=== PATIENT | male | born 1960 | race Caucasian/White ===

== ENCOUNTER 2016-10-29 15:46 | Emergency (ER) | payer MEDICARE ==
--- NOTE | 2016-10-29 16:36 | ER Document Report ---
ED Medical Screen (RME) - General Chief Complaint: Leg Pain Stated Complaint: RIGHT LEG PAIN Time Seen by Provider: 10/29/16 16:28 Mode of Arrival: Wheelchair Information source: Patient TRAVEL OUTSIDE OF THE [place] IN LAST 30 DAYS: No - HPI Patient complains to provider of: R leg pain Onset: Other - Pt with 2-3 day h/o R upper leg pain with no h/o trauma. Now feels like pain is migrating distally - Related Data Allergies/Adverse Reactions: acetaminophen [From Tylenol] Allergy (Verified 10/29/16 16:10) Past Medical History - Social History Chew tobacco use (# tins/day): Yes Frequency of alcohol use: None Drug Abuse: None - Past Medical History Cardiac Medical History: Reports: Hx Hypercholesterolemia, Hx Hypertension Endocrine Medical History: Reports: Hx Diabetes Mellitus Type 2 Renal/ Medical History: Denies: Hx Peritoneal Dialysis Past Surgical History: Reports: Hx Cardiac Catheterization Physical Exam - Vital signs Vitals: Temp Pulse Resp BP Pulse Ox 98.7 F 74 16 100/63 92 10/29/16 16:14 10/29/16 16:14 10/29/16 16:14 10/29/16 16:14 10/29/16 16:14 Course - Vital Signs Vital signs: Temp Pulse Resp BP Pulse Ox 98.7 F 74 16 100/63 92 10/29/16 16:14 10/29/16 16:14 10/29/16 16:14 10/29/16 16:14 10/29/16 16:14
[2016-10-29 17:18] LABS: ABSOLUTE BASOPHILS # (AUTO) 0.1 10^3/uL (0.0-0.2); ABSOLUTE EOSINOPHILS # (AUTO) 0.2 10^3/uL (0.0-0.6); ABSOLUTE LYMPHOCYTES (AUTO) 3.6 10^3/uL (0.5-4.7); ABSOLUTE NEUT (AUTO) 9.7 10^3/uL (1.7-8.2); BASOPHILS % (AUTO) 0.9 % (0-2); EOSINOPHILS % (AUTO) 1.6 % (0-6); HEMATOCRIT 42.6 % (37.9-51.0); HEMOGLOBIN 14.1 g/dL (13.5-17.0); HGB HCT DIFFERENCE -0.3; LYMPHOCYTES % (AUTO) 24.5 % (13-45); MEAN CORPUSCULAR HEMOGLOBIN 28.8 pg (27.0-33.4); MEAN CORPUSCULAR VOLUME 87 fl (80-97); MONOCYTES % (AUTO) 6.7 % (3-13); RED BLOOD COUNT 4.88 10^6/uL (4.35-5.55); RED CELL DISTRIBUTION WIDTH 13.2 % (11.5-14.0); SEGMENTED NEUTROPHILS % (AUTO) 66.3 % (42-78); WHITE BLOOD COUNT 14.7 10^3/uL (4.0-10.5)
[2016-10-29 17:39] LABS: ALANINE AMINOTRANSFERASE 30 U/L (21-72); ALBUMIN 3.9 g/dL (3.5-5.0); ALKALINE PHOSPHATASE 90 U/L (38-126); ANION GAP 12 (5-19); ASPARTATE AMINO TRANSFERASE 21 U/L (17-59); BILIRUBIN,DIRECT 0.3 mg/dL (0.0-0.4); BILIRUBIN,TOTAL 0.6 mg/dL (0.2-1.3); BLOOD UREA NITROGEN 14 mg/dL (7-20); CALCIUM 9.3 mg/dL (8.4-10.2); CARBON DIOXIDE 32 mmol/L (22-30); CHLORIDE 95 mmol/L (98-107); CREATININE RESULT 1.58 mg/dL (0.52-1.25); GLUCOSE 74 mg/dL (75-110); POTASSIUM 4.2 mmol/L (3.6-5.0); SODIUM 138.7 mmol/L (137-145); TOTAL PROTEIN 7.4 g/dL (6.3-8.2)
--- NOTE | 2016-10-29 19:23 | ER Document Report ---
ED General - General Chief Complaint: Leg Pain Stated Complaint: RIGHT LEG PAIN Time Seen by Provider: 10/29/16 16:28 Mode of Arrival: Wheelchair Information source: Patient Notes: 6-year-old male presents with complaints of right thigh pain on the lateral anterior aspect of a few day duration. Patient denies any fevers or chills nausea vomiting or diarrhea. Patient denies any chest pain shortness of breath TRAVEL OUTSIDE OF THE [place] IN LAST 30 DAYS: No - HPI Onset: Other Onset/Duration: Waxing and waning Quality of pain: Sharp Severity: Mild Pain Level: 2 Associated symptoms: Body/muscle aches, Other Exacerbated by: Movement Relieved by: Remaining still Similar symptoms previously: No Recently seen / treated by doctor: No - Related Data Allergies/Adverse Reactions: acetaminophen [From Tylenol] Allergy (Verified 10/29/16 16:10) Past Medical History - General Information source: Patient - Social History Smoking Status: Current Every Day Smoker Cigarette use (# per day): Yes Chew tobacco use (# tins/day): Yes Smoking Education Provided: No Frequency of alcohol use: None Drug Abuse: None Family History: Reviewed & Not Pertinent Patient has suicidal ideation: No Patient has homicidal ideation: No - Past Medical History Cardiac Medical History: Reports: Hx Hypercholesterolemia, Hx Hypertension Endocrine Medical History: Reports: Hx Diabetes Mellitus Type 2 Renal/ Medical History: Denies: Hx Peritoneal Dialysis Past Surgical History: Reports: Hx Cardiac Catheterization Review of Systems - Review of Systems Notes: REVIEW OF SYSTEMS: CONSTITUTIONAL : Denies fever, chills, or sweats. Denies recent illness. EENT: Denies eye, ear, throat, or mouth pain or symptoms. Denies nasal or sinus congestion or discharge. Denies throat, tongue, or mouth swelling or difficulty swallowing. CARDIOVASCULAR: Denies chest pain. Denies palpitations or racing or irregular heart beat. Denies ankle edema. RESPIRATORY: Denies cough, cold, or chest congestion. Denies shortness of breath, difficulty breathing, or wheezing. GASTROINTESTINAL: Denies abdominal pain or distention. Denies nausea, vomiting , or diarrhea. Denies blood in vomitus, stools, or per rectum. Denies black, tarry stools. Denies constipation. GENITOURINARY: Denies difficulty urinating, painful urination, burning, frequency, blood in urine, or discharge. MUSCULOSKELETAL: Right thigh pain SKIN: Denies rash, lesions or sores. HEMATOLOGIC : Denies easy bruising or bleeding. LYMPHATIC: Denies swollen, enlarged glands. NEUROLOGICAL: Denies confusion or altered mental status. Denies passing out or loss of consciousness. Denies dizziness or lightheadedness. Denies headache. Denies weakness or paralysis or loss of use of either side. Denies problems with gait or speech. Denies sensory loss, numbness, or tingling. Denies seizures. PSYCHIATRIC: Denies anxiety or stress. Denies depression, suicidal ideation, or homicidal ideation. ALL OTHER SYSTEMS REVIEWED AND NEGATIVE. Dictation was performed using [employer] voice recognition software PHYSICAL EXAMINATION: GENERAL: Well-appearing, well-nourished and in no acute distress. HEAD: Atraumatic, normocephalic. EYES: Pupils equal round and reactive to light, extraocular movements intact, sclera anicteric, conjunctiva are normal. ENT: Nares patent, oropharynx clear without exudates. Moist mucous membranes. NECK: Normal range of motion, supple without lymphadenopathy LUNGS: Breath sounds clear to auscultation bilaterally and equal. No wheezes rales or rhonchi. HEART: Regular rate and rhythm without murmurs ABDOMEN: Soft, nontender, nondistended abdomen. No guarding, no rebound. No masses appreciated. Musculoskeletal: Normal range of motion, no pitting or edema. No cyanosis. NEUROLOGICAL: Cranial nerves grossly intact. Normal speech, normal gait. Normal sensory, motor exams PSYCH: Normal mood, normal affect. SKIN: Warm, Dry, normal turgor, no rashes or lesions noted. Physical Exam - Vital signs Vitals: Temp Pulse Resp BP Pulse Ox 98.7 F 74 16 100/63 92 10/29/16 16:14 10/29/16 16:14 10/29/16 16:14 10/29/16 16:14 10/29/16 16:14 Course - Re-evaluation Re-evalutation: 10/29/16 19:40 Patient's blood sugar is noted to be low, patient states she has not been eating well. I will give him a meal here since after juice and crackers patient 's blood sugar was only 56. Otherwise his main complaint of leg pain is consistent with nerve tenderness. He will be treated with abdomen, ultrasound was negative 06/03/17 21:20 Patient's blood sugars improved, patient is not happy that he is receiving Percocet and Neurontin, states he already has dose, I will therefore treat him with Toradol and have him follow-up with his primary care physician it appears patient takes 900 mg of Neurontin 3 times a day and already takes 15 mg of Percocet every 6 hours Medically stable for discharge After performing a Medical Screening Examination, I estimate there is LOW risk for INTRACRANIAL HEMORRHAGE, UNSTABLE SPINE FRACTURE, CENTRAL CORD SYNDROME, CAUDA EQUINA, THORACIC AORTIC DISSECTION, PNEUMOTHORAX, PERFORATED BOWEL, RUPTURED ABDOMINAL AORTIC ANEURYSM, ACUTE TENDON RUPTURE, COMPARTMENT SYNDROME, or OPEN FRACTURE, thus I consider the discharge disposition reasonable. Also, there is no evidence or peritonitis, sepsis, or toxicity. I have reevaluated this patient multiple times and no significant life threatening changes are noted. The patient and I have discussed the diagnosis and risks, and we agree with discharging home to follow-up with their primary doctor with the understanding that symptoms and presentations can change. We also discussed returning to the Emergency Department immediately if new or worsening symptoms occur. We have discussed the symptoms which are most concerning (e.g., bloody stool, fever, changing or worsening pain, vomiting) that necessitate immediate return. - Vital Signs Vital signs: Temp Pulse Resp BP Pulse Ox 98.2 F 68 18 110/58 L 98 10/29/16 18:36 10/29/16 18:36 10/29/16 18:36 10/29/16 18:36 10/29/16 18:36 - Laboratory Result Diagrams: 10/29/16 17:05 10/29/16 17:05 Laboratory results interpreted by me: 10/29/16 10/29/16 10/29/16 17:05 17:05 18:41 WBC 14.7 H Plt Count 500 H Absolute Neutrophils 9.7 H Chloride 95 L Carbon Dioxide 32 H Creatinine 1.58 H Est GFR ( Amer) 55 L Est GFR (Non-Af Amer) 46 L Glucose 74 L POC Glucose 50 L 10/29/16 10/29/16 19:38 20:51 WBC Plt Count Absolute Neutrophils Chloride Carbon Dioxide Creatinine Est GFR ( Amer) Est GFR (Non-Af Amer) Glucose POC Glucose 56 L 123 H - Diagnostic Test Radiology reviewed: Image reviewed, Reports reviewed - No acute abnormality Discharge - Discharge Clinical Impression: Nerve pain, Hypoglycemia Condition: Stable Disposition: HOME, SELF-CARE Instructions: Neuropathy (OM) Prescriptions: Ketorolac Tromethamine [Toradol 10 mg Tablet] 10 mg PO Q6HP PRN #40 tablet PRN Reason: Gabapentin [Neurontin 300 mg Capsule] 300 mg PO Q12 #30 cap Referrals: ABELARDO LEIJA MD [Primary Care Provider] - Follow up in 3-5 days
[2016-10-29] MEDS ORDERED: GABAPENTIN 300 MG CAPSULE PO ONE (19:32)
--- NOTE | 2016-10-29 19:38 | RADIOLOGY REPORT (SQ) ---
EXAM DESCRIPTION: VENOUS UNILATERAL LOWER COMPLETED DATE/TIME: 10/29/2016 7:08 pm REASON FOR STUDY: R leg pain and swelling COMPARISON: None. TECHNIQUE: Dynamic and static bragg scale and color images acquired of the right leg venous system. S elected spectral images acquired with additional compression and augmentation maneuvers. The contrala teral common femoral vein and saphenofemoral junction were also imaged. Images stored on PACS. LIMITATIONS: None. FINDINGS: COMMON FEMORAL: Normal phasicity, compression and augmentation. No visualized echogenic ma terial on bragg scale. No defects on color images. FEMORAL: Normal compression and augmentation. No visualized echogenic material on bragg scale. No defe cts on color images. POPLITEAL: Normal compression, augmentation. No visualized echogenic material on bragg scale. No defec ts on color images. CALF VESSELS: Normal compression, augmentation. No visualized echogenic material on bragg scale. No de fects on color images. GSV and SSV: Normal compression, augmentation. No visualized echogenic material on bragg scale. No def ects on color images. ANY DEEP VENOUS INSUFFICIENCY: Not evaluated. ANY EVIDENCE OF POPLITEAL CYST: No. OTHER: No other significant finding. CONTRALATERAL COMMON FEMORAL VEIN AND SAPHENOFEMORAL JUNCTION: Normal phasicity, compression and augmentation. No visualized echogenic material on bragg scale. No de fects on color images. IMPRESSION: NO EVIDENCE OF DVT OR SVT IN THE RIGHT LEG. TECHNICAL DOCUMENTATION: JOB ID: [id number] [employer]- All Rights Reserved
[2016-10-29] MEDS ORDERED: OXYCODONE HCL IR 5 MG TABLET PO ONE (20:22)
[2016-10-29] MEDS ORDERED: KETOROLAC TROMETHAMINE 60 MG/2 ML SDV IM ONE (21:20)
[2016-10-29 21:36] VITALS: BP 116/68
== END 2016-10-29 22:00 | disposition home or self-care (01) ==
LOC: ER 15:46
DX: M79.2 Neuralgia and neuritis, unspecified (principal); E11.649 Type 2 diabetes mellitus with hypoglycemia without coma; F17.210 Nicotine dependence, cigarettes, uncomplicated; E78.00 Pure hypercholesterolemia, unspecified; I10 Essential (primary) hypertension; Z88.6 Allergy status to analgesic agent
CPT/HCPCS: 99284; 96372; 36415; 82962; 85025; 80053; 93971; J1885; A9270 ×2

== ENCOUNTER 2018-06-04 17:55 | Emergency (ER) | payer MEDICARE ==
[2018-06-04] MEDS ORDERED: IPRATROPIUM/ALBUTEROL 0.5-2.5 MG/3 ML AMPUL NEB ONE (19:16)
--- NOTE | 2018-06-04 19:16 | ER Document Report ---
ED Medical Screen (RME) - General Chief Complaint: High Blood Sugar Stated Complaint: BLOOD SUGAR ISSUE Time Seen by Provider: 06/04/18 19:08 Notes: RAPID MEDICAL EVALUATION DISCLOSURE I have seen this patient as part of a Rapid Medical Evaluation and, if applicable, placed any initially appropriate orders. The patient will be seen and fully evaluated, including a full history and physical exam, by a provider (in Main ED or Fast Track) when a room becomes available. 58-year-old male PMH diabetes here with complaints of elevated blood sugars over the past few weeks. He has had dry mouth, urinary frequency, excessive thirst over this same timeframe. He states that he just recently found out that his refrigerator has not been working appropriately and that his insulin has actually been freezing over rendering it useless. He thinks that this "bad insulin" is a reason for his hyperglycemia. His usual blood sugar ranges in the 100s. He also complains of some shortness of breath and wheezing that he states is baseline for him and is not any worse than it normally is. He does continue to smoke cigarettes. EXAM Mild end expiratory wheezes Normal aeration throughout RRR TRAVEL OUTSIDE OF THE [place] IN LAST 30 DAYS: No - Related Data Allergies/Adverse Reactions: acetaminophen [From Tylenol] Allergy (Verified 10/29/16 16:10) Past Medical History - Social History Chew tobacco use (# tins/day): No Frequency of alcohol use: None Drug Abuse: None - Past Medical History Cardiac Medical History: Reports: Hx Hypercholesterolemia, Hx Hypertension Endocrine Medical History: Reports: Hx Diabetes Mellitus Type 2 Renal/ Medical History: Denies: Hx Peritoneal Dialysis Past Surgical History: Reports: Hx Cardiac Catheterization Physical Exam - Vital signs Vitals: Temp Pulse Resp BP Pulse Ox 99.0 F 77 16 134/71 H 96 06/04/18 18:07 06/04/18 18:07 06/04/18 18:07 06/04/18 18:07 06/04/18 18:07 Course - Vital Signs Vital signs: Temp Pulse Resp BP Pulse Ox 99.0 F 77 16 134/71 H 96 06/04/18 18:07 06/04/18 18:07 06/04/18 18:07 06/04/18 18:07 06/04/18 18:07 Doctor's Discharge - Discharge Referrals: ABELARDO LEIJA MD [Primary Care Provider] - Follow up as needed
--- NOTE | 2018-06-04 19:44 | RADIOLOGY REPORT (SQ) ---
EXAM DESCRIPTION: CHEST 2 VIEWS COMPLETED DATE/TIME: 06/04/2018 7:25 pm REASON FOR STUDY: sob wheezing COMPARISON: None. NUMBER OF VIEWS: Two view. TECHNIQUE: Frontal and lateral radiographic views of the chest acquired. LIMITATIONS: None. FINDINGS: LUNGS AND PLEURA: No opacities, masses or pneumothorax. No pleural effusion. Attenuated bl ood vessels and flattened lan-diaphragms. MEDIASTINUM AND HILAR STRUCTURES: No masses. No contour abnormalities. HEART AND VASCULAR STRUCTURES: Heart normal in size and contour. No evidence for failure. BONES: No acute findings. HARDWARE: None in the chest. OTHER: No other significant finding. IMPRESSION: COPD. NO ACUTE RADIOGRAPHIC FINDING IN THE CHEST. TECHNICAL DOCUMENTATION: JOB ID: [id number] [employer]- All Rights Reserved Reading location - IP/workstation name: [email or web address]
[2018-06-04 20:05] LABS: ABSOLUTE BASOPHILS # (AUTO) 0.1 10^3/uL (0.0-0.2); ABSOLUTE EOSINOPHILS # (AUTO) 0.1 10^3/uL (0.0-0.6); ABSOLUTE LYMPHOCYTES (AUTO) 2.5 10^3/uL (0.5-4.7); ABSOLUTE MONOCYTES (AUTO) 0.7 10^3/uL (0.1-1.4); BASOPHILS % (AUTO) 0.9 % (0-2); EOSINOPHILS % (AUTO) 0.8 % (0-6); HEMATOCRIT 44.4 % (37.9-51.0); LYMPHOCYTES % (AUTO) 15.1 % (13-45); MEAN CORPUSCULAR HEMOGLOBIN 29.3 pg (27.0-33.4); MEAN CORPUSCULAR HGB CONC 33.7 g/dL (32.0-36.0); MEAN CORPUSCULAR VOLUME 87 fl (80-97); PLATELET COUNT 516 10^3/uL (150-450); RED BLOOD COUNT 5.11 10^6/uL (4.35-5.55); SEGMENTED NEUTROPHILS % (AUTO) 79.2 % (42-78); TOTAL CELLS COUNTED % (AUTO) 100 %; VENOUS BLOOD BASE EXCESS 1.6 mmol/L; VENOUS BLOOD HCO3 27.9 mmol/L (20-32); VENOUS BLOOD PCO2 49.9 mmHg (35-63); VENOUS BLOOD PH 7.37 (7.30-7.42); WHITE BLOOD COUNT 16.4 10^3/uL (4.0-10.5)
[2018-06-04 20:41] LABS: APPEARANCE,URINE SLIGHTLY-CLOUDY; BILIRUBIN,URINE NEGATIVE (NEGATIVE); COLOR,URINE YELLOW; GLUCOSE, URINE >=500 mg/dL (NEGATIVE); KETONES,URINE NEGATIVE (NEGATIVE); LEUKOCYTE ESTERASE,URINE MODERATE (NEGATIVE); NITRITE,URINE NEGATIVE (NEGATIVE); PROTEIN,URINE NEGATIVE (NEGATIVE); URINE SPECIFIC GRAVITY 1.023; UROBILINOGEN,URINE NEGATIVE mg/dL (<2.0)
[2018-06-04 22:29] LABS: ALANINE AMINOTRANSFERASE 22 U/L (21-72); ALBUMIN 3.9 g/dL (3.5-5.0); ALKALINE PHOSPHATASE 109 U/L (38-126); ANION GAP 8 (5-19); ASPARTATE AMINO TRANSFERASE 17 U/L (17-59); BILIRUBIN,DIRECT 0.3 mg/dL (0.0-0.4); BILIRUBIN,TOTAL 0.5 mg/dL (0.2-1.3); BLOOD UREA NITROGEN 18 mg/dL (7-20); CALCIUM 9.5 mg/dL (8.4-10.2); CARBON DIOXIDE 30 mmol/L (22-30); CHLORIDE 100 mmol/L (98-107); GLUCOSE 269 mg/dL (75-110); POTASSIUM 4.1 mmol/L (3.6-5.0); SODIUM 138.1 mmol/L (137-145)
[2018-06-04] MEDS ORDERED: NICOTINE 21 MG/24 HR PATCH.TD24 TD ONE (22:46)
[2018-06-04] MEDS ORDERED: NORMAL SALINE 500 ML IV ONE (22:46)
[2018-06-04] MEDS ORDERED: CEFTRIAXONE INJ 1000 MG VIAL IM ONE (22:47)
[2018-06-04] MEDS ORDERED: LIDOCAINE 1% INJ-PF (10 MG/ML) 30 ML SDV INJ ONE (22:47)
[2018-06-05] MEDS ORDERED: INSULIN REG, HUMAN 100 UNIT/ML 3 ML VIAL (PYX) SUBCUT ONE (00:40)
--- NOTE | 2018-06-05 00:44 | ER Document Report ---
ED General - General Chief Complaint: High Blood Sugar Stated Complaint: BLOOD SUGAR ISSUE Time Seen by Provider: 06/04/18 19:08 Notes: Patient is a 58-year-old male presents with complaint with blood sugar running high. Patient says is been ongoing for weeks. Says is been increasing his insulin but does not seem be working. They realize that his insulin is effective because his refrigerator malfunction and his insulin in the freezing. Therefore is come to the ER. He also has a urinary tract infection. He said 1 month ago was diagnosed and placed on Cipro and his symptoms resolved but the last week he started having some burning with urination. He also has some burning at the tip of his penis. No abnormal discharge. No fevers. No other complaints at this time. TRAVEL OUTSIDE OF THE [place] IN LAST 30 DAYS: No - Related Data Allergies/Adverse Reactions: acetaminophen [From Tylenol] Allergy (Verified 10/29/16 16:10) Past Medical History - Social History Smoking Status: Current Every Day Smoker Chew tobacco use (# tins/day): No Frequency of alcohol use: None Drug Abuse: None Family History: Reviewed & Not Pertinent Patient has suicidal ideation: No Patient has homicidal ideation: No - Past Medical History Cardiac Medical History: Reports: Hx Hypercholesterolemia, Hx Hypertension Endocrine Medical History: Reports: Hx Diabetes Mellitus Type 2 Renal/ Medical History: Denies: Hx Peritoneal Dialysis Past Surgical History: Reports: Hx Cardiac Catheterization Review of Systems - Review of Systems Notes: My Normal Review Basic REVIEW OF SYSTEMS: CONSTITUTIONAL : Denies fever, chills, or sweats. Denies recent illness. EENT: Denies eye, ear, throat, or mouth pain or symptoms. Denies nasal or sinus congestion. CARDIOVASCULAR: Denies chest pain. RESPIRATORY: Denies cough, cold, or chest congestion. Denies shortness of breath, difficulty breathing, or wheezing. GASTROINTESTINAL: Suprapubic abdominal pain. Denies nausea, vomiting, or di arrhea. Denies constipation. Last BM: GENITOURINARY: Dysuria and urinary frequency MUSCULOSKELETAL: Denies neck or back pain or joint pain or swelling. SKIN: Denies rash or skin lesions. NEUROLOGICAL: Denies altered mental status or loss of consciousness. Denies headache. ALL OTHER SYSTEMS REVIEWED AND NEGATIVE. Physical Exam - Vital signs Vitals: Temp Pulse Resp BP Pulse Ox 99.0 F 77 16 134/71 H 96 06/04/18 18:07 06/04/18 18:07 06/04/18 18:07 06/04/18 18:07 06/04/18 18:07 - Notes Notes: General Appearance: Well nourished, alert, cooperative, no acute distress, no obvious discomfort. Well-appearing. Vitals: reviewed, See vital signs table. Head: no swelling or tenderness to the head Eyes: PERRL, EOMI, Conjuctiva clear Mouth: No decreasd moisture Throat: No tonsillar inflammation, No airway obstruction, No lymphadenopathy Neck: Supple, no neck tenderness, No thyromegaly Lungs: No wheezing, No rales, No rhonci, No accessory muscle use, good air exchange bilaterally. Heart: Normal rate, Regular rythm, No murmur, no rub Abdomen: Normal BS, soft, No rigidity, some suprapubic abdominal tenderness to palpation, No guarding, no rebound, no abdominal masses, no organomegaly Genital: No redness or swelling to the genitalia. No signs of cellulitis or scrotal infection. Extremities: good pulses in all extremities, no swelling or tenderness in the extremities, no edema. Skin: warm, dry, appropriate color, no rash Neuro: speech clear, oriented x 3, normal affect, responds appropriately to questions. Course - Re-evaluation Re-evalutation: 06/05/18 00:57 Patient's blood sugars is now down to 200s p.o. given to small dose of insulin. I wrote prescription for new insulin in case he needs prescriptions. He said he should be able to get a new insulin through his old prescriptions but informed on the right knee prescriptions in case he cannot get through his old prescript ion. Patient really takes Lantus 60 units daily with a sliding scale of Humalog. Informed him to start off with the Lantus. If he still needs to use a sliding scale he can but to only go based on a sliding scale do not exceed a sliding scale. He is to return to ER if he has blood sugars approaching 400, fevers, worsening signs of infection, or feel unwell. Patient while he was here in the ED requested several times to have food as well as soda. Informed him that right now he does have some crackers and therefore try to give him some food and crackers. Patient does start yelling at the nurse because she would only give him diet soda not regular soda. I informed patient that is not good he is drinking regular soda or being that is a diabetic and that Malka not good that he wants to drink regular soda a when he comes here for high blood sugar. Patient says that he always drinks regular soda and that that is not the problem. I informed him that it is a problem therefore he should stop that. I do not think patient will stop drinking regular soda as he did not seem to want to agree with me on this. Patient otherwise is stable be discharged home. Dictation of this chart was performed using voice recognition software; therefore, there may be some unintended grammatical errors. - Vital Signs Vital signs: Temp Pulse Resp BP Pulse Ox 99.0 F 77 16 134/71 H 96 06/04/18 18:07 06/04/18 18:07 06/04/18 18:07 06/04/18 18:07 06/04/18 18:07 - Laboratory Result Diagrams: 06/04/18 19:50 06/04/18 22:05 Laboratory results interpreted by me: 06/04/18 06/04/18 06/04/18 19:08 19:50 20:00 WBC 16.4 H Plt Count 516 H Seg Neutrophils % 79.2 H Absolute Neutrophils 13.0 H Glucose POC Glucose 331 H Urine Glucose (UA) >=500 H Urine Blood SMALL H Ur Leukocyte Esterase MODERATE H 06/04/18 06/04/18 06/05/18 22:05 22:07 00:20 WBC Plt Count Seg Neutrophils % Absolute Neutrophils Glucose 269 H POC Glucose 241 H 234 H Urine Glucose (UA) Urine Blood Ur Leukocyte Esterase Discharge - Discharge Clinical Impression: Hyperglycemia UTI (urinary tract infection) Qualifiers: Urinary tract infection type: site unspecified Hematuria presence: without hematuria Qualified Code(s): N39.0 - Urinary tract infection, site not specified Condition: Good Disposition: HOME, SELF-CARE Additional Instructions: I have written a prescription for your insulin in case your prescription has run out and you need another prescription. Please take the antibiotic as prescribed for your UTI. Please consider drinking diet soda instead of regular soda. Please return to the ER if you feel unwell, have blood sugars above 400, fevers, or have any further concerns. Please try to quit smoking. Prescriptions: Cephalexin Monohydrate [Keflex 500 mg Capsule] 500 mg PO BID 5 Days #10 capsule Insulin Glargine,Hum.rec.anlog [Lantus Insulin 100 Unit/1 ml 10 ml] 60 unit SUBCUT DAILY #1000 unit Insulin Lispro [Humalog Insulin 100 Unit/1 ml 3 ml Vial] 0 unit SUBCUT .SLD SCALE #10 ml Referrals: ABELARDO LEIJA MD [Primary Care Provider] - Follow up in 3-5 days
[2018-06-05 01:05] VITALS: BP 121/75
== END 2018-06-05 01:03 | disposition home or self-care (01) ==
LOC: ER 17:55
DX: E11.65 Type 2 diabetes mellitus with hyperglycemia (principal); N39.0 Urinary tract infection, site not specified; Z79.4 Long term (current) use of insulin; F17.200 Nicotine dependence, unspecified, uncomplicated; E78.00 Pure hypercholesterolemia, unspecified; I10 Essential (primary) hypertension; Z88.6 Allergy status to analgesic agent
CPT/HCPCS: 94640; 99284; 96372; 36415; 82962; 83735; 85025; 80053; 81001; 82803; 71046; J3490; A9270 ×2; J0696; J7040; J1815; J7620